=== PATIENT | female | born 1955 | race American Indian/Alaskan Native ===

== ENCOUNTER 2017-11-15 19:51 | Emergency (ER) | payer BC | END 2017-11-15 20:30 | disposition left against medical advice (07) | LOC: ED 19:51 | DX: M54.9 Dorsalgia, unspecified (principal); Z53.21 Procedure and treatment not carried out due to patient leaving prior to being seen by health care provider ==

== ENCOUNTER 2022-01-11 14:21 | Emergency (ER) | payer MEDICARE ==
[2022-01-11 15:29] LABS: Basophils % (Auto) 0.3 % (0.0-1.8); Hematocrit 34.9 % (30.3-42.9); Hemoglobin 11.7 gm/dl (10.1-14.3); Lymphocytes # (Auto) 2.3 K/mm3 (1.2-5.4); Lymphocytes % (Auto) 54.7 % (13.4-35.0); Mean Corpuscular HGB Conc 34 % (30-34); Mean Corpuscular Volume 91 fl (79-97); Monocytes # (Auto) 0.3 K/mm3 (0.0-0.8); Monocytes % (Auto) 7.4 % (0.0-7.3); Platelet Count 279 K/mm3 (140-440); Red Blood Count 3.82 M/mm3 (3.65-5.03); Red Cell Distribution Width 13.4 % (13.2-15.2)
[2022-01-11 15:34] LABS: Blood Urea Nitrogen 14 mg/dL (7-17); Calcium 8.9 mg/dL (8.4-10.2); Hemolysis Index 7
[2022-01-11 15:35] LABS: BUN/Creatinine Ratio 20
[2022-01-11] MEDS ORDERED: POTASSIUM CHLORIDE ER 20 MEQ TAB PO ONE (15:43)
--- NOTE | 2022-01-11 16:12 | Emergency Department Report ---
ED General Adult HPI - General Chief complaint: Recheck/Abnormal Lab/Rx Stated complaint: CHECK POTASSIUM Time Seen by Provider: 01/11/22 15:09 Source: patient Mode of arrival: Ambulatory Limitations: No Limitations - History of Present Illness Initial comments: 66-year-old -[place] female patient presents with complaints of hypokalemia today. Patient states she was seen by her PCP Dr. Abdi yesterday and had blood work drawn. She states she was contacted by her doctor's office today and informed to seek emergency treatment for potassium of 2.5. Patient reports history of hypokalemia and was previously on potassium daily, however patient states she was taken off of the potassium 6 months ago. She states she believes she is on a diuretic a combination with her blood pressure medication, however she does not know the name of the medication. She denies any chest pain, shortness of breath, dizziness, or other symptoms and states she is feeling well today. She also denies any vomiting or diarrhea - Related Data Home Medications Medication Instructions Recorded Confirmed Last Taken Atorvastatin [Lipitor] 40 mg PO QHS 08/25/14 08/25/14 08/17/14 Clopidogrel Bisulfate [Plavix] 75 mg PO DAILY 08/25/14 08/25/14 08/18/14 Ibuprofen/Famotidine [Duexis 20 mg PO BID 08/25/14 08/25/14 08/18/14 800-26.6 mg Tablet] Warfarin [Coumadin] 5 mg pe PO DAILY 08/25/14 08/25/14 08/18/14 diphenhydrAMINE [Benadryl] 25 mg PO PRN PRN 08/25/14 08/25/14 07/31/14 Previous Rx's Medication Instructions Recorded Last Taken Type Metoprolol [Lopressor TAB] 12.5 mg PO BID #60 tablet 07/21/14 08/18/14 Rx Allergies Allergy/AdvReac Type Severity Reaction Status Date / Time aspirin Allergy Vomiting Verified 01/11/22 16:35 codeine Allergy Itching Verified 01/11/22 16:35 Penicillins Allergy Itching Verified 01/11/22 16:35 povidone-iodine Allergy Swelling Verified 01/11/22 16:35 [From Betadine] soap [From Betadine] Allergy Swelling Verified 01/11/22 16:35 seafood Allergy Swelling Uncoded 08/25/14 10:33 ED Review of Systems ROS: Stated complaint: CHECK POTASSIUM Other details as noted in HPI Constitutional: denies: chills, fever, malaise Respiratory: denies: shortness of breath Cardiovascular: denies: chest pain Gastrointestinal: denies: abdominal pain, nausea, vomiting, diarrhea Neurological: denies: headache ED Past Medical Hx - Past Medical History Hx Hypertension: No Hx Congestive Heart Failure: No Hx Diabetes: No Hx Asthma: No Hx COPD: No - Surgical History Additional Surgical History: tubal ligation. fibroid removal - Social History Smoking Status: Never Smoker - Medications Home Medications: Home Medications Medication Instructions Recorded Confirmed Last Taken Type Metoprolol [Lopressor TAB] 12.5 mg PO BID #60 tablet 07/21/14 08/25/14 08/18/14 Rx Atorvastatin [Lipitor] 40 mg PO QHS 08/25/14 08/25/14 08/17/14 History Clopidogrel Bisulfate [Plavix] 75 mg PO DAILY 08/25/14 08/25/14 08/18/14 History Ibuprofen/Famotidine [Duexis 20 mg PO BID 08/25/14 08/25/14 08/18/14 History 800-26.6 mg Tablet] Warfarin [Coumadin] 5 mg pe PO DAILY 08/25/14 08/25/14 08/18/14 History diphenhydrAMINE [Benadryl] 25 mg PO PRN PRN 08/25/14 08/25/14 07/31/14 History ED Physical Exam - General Limitations: No Limitations General appearance: alert, in no apparent distress - Head Head exam: Present: atraumatic - Eye Eye exam: Present: normal appearance. Absent: scleral icterus - Respiratory Respiratory exam: Absent: respiratory distress - Cardiovascular Cardiovascular Exam: Present: regular rate, normal rhythm - Neurological Exam Neurological exam: Present: alert, oriented X3 - Psychiatric Psychiatric exam: Present: normal affect, normal mood - Skin Skin exam: Present: warm, dry, intact, normal color. Absent: rash ED Course Vital Signs 01/11/22 14:43 Temperature 98.1 F Pulse Rate 56 L Respiratory 17 Rate Blood Pressure 144/39 O2 Sat by Pulse 100 Oximetry ED Medical Decision Making - Lab Data Result diagrams: 01/11/22 15:06 01/11/22 15:06 Lab Results 0301/11/22 01/11/22 Range/Units 15:06 15:06 15:06 WBC 4.2 L (4.5-11.0) K/mm3 RBC 3.82 (3.65-5.03) M/mm3 Hgb 11.7 (10.1-14.3) gm/dl Hct 34.9 (30.3-42.9) % MCV 91 (79-97) fl MCH 31 (28-32) pg MCHC 34 (30-34) % RDW 13.4 (13.2-15.2) % Plt Count 279 (140-440) K/mm3 Lymph % (Auto) 54.7 H (13.4-35.0) % [place] % (Auto) 7.4 H (0.0-7.3) % Eos % (Auto) 1.0 (0.0-4.3) % Baso % (Auto) 0.3 (0.0-1.8) % Lymph # (Auto) 2.3 (1.2-5.4) K/mm3 [place] # (Auto) 0.3 (0.0-0.8) K/mm3 Eos # (Auto) 0.0 (0.0-0.4) K/mm3 Baso # (Auto) 0.0 (0.0-0.1) K/mm3 Seg Neutrophils % 36.6 L (40.0-70.0) % Seg Neutrophils # 1.5 L (1.8-7.7) K/mm3 Sodium 139 (137-145) mmol/L Potassium 2.3 L* (3.6-5.0) mmol/L Chloride 99.8 (98-107) mmol/L Carbon Dioxide 30 (22-30) mmol/L Anion Gap 12 mmol/L BUN 14 (7-17) mg/dL Creatinine 0.7 (0.6-1.2) mg/dL Estimated GFR > 60 ml/min BUN/Creatinine Ratio 20 % Glucose 93 (65-100) mg/dL Calcium 8.9 (8.4-10.2) mg/dL Magnesium 2.40 H (1.7-2.3) mg/dL - EKG Data EKG shows normal: sinus rhythm Rate: normal - EKG Data Interpretation: other (Nonspecific T wave abnormalities;) - Medical Decision Making 66-year-old -[place] female patient presents with complaints of hyp okalemia today. Patient states she was seen by her PCP Dr. Abdi yesterday and had blood work drawn. She states she was contacted by her doctor's office today and informed to seek emergency treatment for potassium of 2.5. Patient reports history of hypokalemia and was previously on potassium daily, however patient states she was taken off of the potassium 6 months ago. She states she believes she is on a diuretic a combination with her blood pressure medication, however she does not know the name of the medication. She denies any chest pain, shortness of breath, dizziness, or other symptoms and states she is feeling well today. She also denies any vomiting or diarrhea Potassium noted to be 2.3. Magnesium is normal. Discussed patient with Dr. Valenzuela-recommends oral potassium and 20 mEq of potassium IV. Patient continues to deny any symptoms and states she is feeling well. Her vitals are normal she is stable for discharge home. Patient to resume her daily potassium of 10 mEq daily and follow-up with her doctor on Friday morning. Patient states she has a great deal of 10 mEq potassium pills at home and declines prescription. Discussed signs and symptoms that should prompt immediate return to ED with patient verbalized understanding Critical care attestation.: If time is entered above; I have spent that time in minutes in the direct care of this critically ill patient, excluding procedure time. ED Disposition Clinical Impression: Hypokalemia Disposition: HOME / SELF CARE / HOMELESS Is pt being admited?: No Condition: Stable Instructions: Hypokalemia, Potassium Content of Foods Referrals: JJ ABDI NP [Primary Care Provider] - 01/14/22
[2022-01-11] MEDS: POTASSIUM CHLORIDE 10 MEQ 10 MEQ/100 ML BAG IV SCH ×2 (17:56→21:38)
[2022-01-11 21:41] VITALS: BP 138/78
--- NOTE | 2022-01-14 08:33 | Electrocardiograph Report ---
[facility] Test Date: 2022-01-11 Test Time: 16:07:09 Pat Name: MACRELO POON Department: Room: Gender: F Digital Media Coordinator: ERICA : 1955 Requested By: ELIAS HICKMNA Order Number: [id number] Reading MD: Amol Rosenthal Measurements Intervals [place] Rate: 55 P: 73 AR: 181 QRS: 62 QRSD: 90 T: 200 QT: 480 QTc: 459 Interpretive Statements Sinus bradycardia T wave abnormality, consider anterior ischemia No previous ECG available for comparison Electronically Signed On 01-14-2022 8:32:46 EDT by Amol Rosenthal
== END 2022-01-11 21:42 | disposition home or self-care (01) ==
LOC: ED 14:21
DX: Z88.6 Allergy status to analgesic agent (principal); Z88.0 Allergy status to penicillin; Z91.013 Allergy to seafood; Z88.5 Allergy status to narcotic agent; Z91.041 Radiographic dye allergy status
CPT/HCPCS: 36415; 80048; 83735; 85025; 93005; 96365; 96366; 99283; J3480